=== PATIENT | male | born 1955 | race Caucasian/White ===

== ENCOUNTER 2022-12-25 11:30 | Outpatient (OUT) | payer OTHER, SELFPAY ==
[2022-12-28 04:12] LABS: PSA, Free 0.15 ng/mL; Prostate Specific Ag 1.4 ng/mL (0.0-4.0)
== END 2022-12-25 11:31 | disposition home or self-care (01) ==
LOC: LAB 11:33
PROVIDERS: PCP Nurse Practitioner; Visit Provider Urology
DX: N40.1 Benign prostatic hyperplasia with lower urinary tract symptoms (principal); N52.9 Male erectile dysfunction, unspecified; N26.1 Atrophy of kidney (terminal); N40.2 Nodular prostate without lower urinary tract symptoms
CPT/HCPCS: 36415; 84153; 84154

== ENCOUNTER 2023-12-27 10:01 | Outpatient (OUT) | payer OTHER, SELFPAY ==
--- OUTSIDE RECORDS SUMMARY | 2023-12-27 10:11 | XMS_ITS | CCD ---
Author Organization [facility] Care Team Providers Care 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 Name Role Phone SHANNAN REINA Primary Care Physician SHANNAN REINA Primary Care Unavailable ANGEL, DR KURTZ Attending Unavailable ANGEL, DR KURTZ Consulting Unavailable ANGEL, DR KURTZ Admitting Unavailable NUNO, SHANNAN Admitting Unavailable SHANNAN REINA Attending Unavailable NUNO, SHANNAN Primary Care Unavailable Luther, DR Borrego Consulting Unavailable NUNO, SHANNAN Consulting Unavailable REINA, SHANNAN Primary Care Unavailable SHANNAN REINA Admitting Unavailable SHANNAN REINA Attending Unavailable SHANNAN REINA Consulting Unavailable DEDE HUNG Consulting Unavailable DEDE HUNG Admitting Unavailable REINA, SHANNAN Primary Care Unavailable DEDE HUNG Attending Unavailable NUNO, SHANNAN Primary Care Unavailable Tao CONTRERAS Attending Unavailable SHANNAN REINA Primary Care Unavailable Tao CONTRERAS Attending Unavailable Nuno HEART NURSE-Shannan HERNANDEZ Primary Care Provid er SHANNAN REINA Attending Unavailable SHANNAN REINA Referring Unavailable SHANNAN REINA Primary Care Unavailable SHANNAN REINA Attending Unavailable SHANNAN REINA Referring Unavailable SHANNAN REINA Primary Care Unavailable SHANNAN REINA Attending Unavailable SHANNAN REINA Referring Unavailable SHANNAN REINA Primary Care Unavailable Medications Current Medications Medication Drug Class(es) Dates Sig (Normalized) Sig (Original) aspirin 81 mg delayed release oral tablet (5 sources) Platelet Aggregation Inhibitor, Nonsteroidal Anti-inflammatory Drug Start: 05-31-2023 take 1 tablet by mouth once daily aspirin 81 mg Indications: Pneumonia due to COVID-19 virus TAKE 1 TABLET(81 MG) BY MOUTH DAILY 90 tablet 2 05/31/2023 Active Start: 05-17-2022 End: 05-31-2023 take 1 tablet by mouth once daily aspirin 81 mg Indications: Pneumonia due to COVID-19 virus TAKE 1 TABLET(81 MG) BY MOUTH DAILY 90 tablet 2 05/17/2022 05/31/2023 Discontinued Start: 11-07-2020 take 1 mg by mouth e very four hours aspirin 81 mg oral capsule mg cap(s), Oral, q4hr, Refills(s) 0 Start Date: 11/07/20 Status: Ordered atorvastatin 40 mg oral tablet (5 sources) HMG-CoA Reductase Inhibitor Start: 12-16-2022 End: 03-22-2023 atorvastatin (LIPITOR) 40 mg tablet Indications: Non-insulin dependent type 2 diabetes mellitus (CMS-HCC) Take 1 tablet (40 mg total) by mouth in the morning. 90 tablet 2 03/22/2023 Active Start: 11-07-2020 atorvastatin 2 0 mg Tab Refills(s) 0 Start Date: 11/07/20 Status: Ordered benzonatate 200 mg oral capsule (1 source) Non-narcotic Antitussive Start: 11-07-2020 benzonatate 200 mg oral capsule Refills(s) 0 Start Date: 11/07/20 Status: Ordered blood-glucose meter misc (3 sources) Start: 12-25-2020 blood-glucose meter misc Indications: New onset type 2 diabetes mellitus (CMS-HCC) Monitor blood sugar twice daily 1 each 0 12/25/2020 Active cholecalciferol 0.125 mg oral capsule (3 sources) Vitamin D Start: 01-26-2021 take 1 capsule by mouth once daily cholecalciferol, vitamin D3, (VITAMIN D3) 5,000 units capsule Indications: COVID-19 , Vitamin D deficiency take 1 capsule by mouth once daily 90 capsule 0 01/26/2021 Active finasteride 5 mg oral tablet (4 sources) 5-alpha Reductase Inhibitor Start: 02-19-2021 take 1 tablet by mouth in the morning finasteride (PROSCAR) 5 mg tablet Take 1 tablet (5 mg total) by mouth in the morning. 0 05/26/2021 Active FLUoxetine 20 mg oral tablet (5 sources) Serotonin Reuptake Inhibitor Start: 12-15-2022 End: 03-22-2023 take 1 tablet by mouth in the morning FLUoxetine (PROzac) 20 MG tablet Indications: Anxiety with depression Take 1 tablet (20 mg total) by mouth in the morning. 90 tablet 1 03/22/2023 Active Start: 11-07-2020 FLUoxetine (Eq v-Prozac) 20 mg oral tablet 20 mg = 1 tab(s), Refills(s) 0 Start Date: 11/07/20 Status: Ordered FOLIC ACID/MULTIVIT-MIN/LUTE IN (CENTRUM SILVER ORAL) (3 sources) FOLIC ACID/MULTI VIT-MIN/LUTEIN (CENTRUM SILVER ORAL) Take by mouth. 0 Active isopropyl alcohol 0.7 ml/ml medicated pad (3 sources) Start: 2020 alcohol swabs (ALCOHOL PREP PADS) pads, medicated Indications: New onset type 2 diabetes mellitus (CMS-HCC) Apply 1 Pad topically 2 (two) times a day. 200 each 2 12/25/2020 Active levothyroxine sodium 0.075 m g oral tablet (5 sources) l-Thyr oxine Start: 2022 End: 2023 take 1 tablet by mouth once daily levothyroxine (SYNTHROID, LEVOTHROID) 75 MCG tablet Indications: Acquired hypothyroidism TAKE 1 TABLET(75 MCG) BY MOUTH DAILY 90 tablet 1 03/22/2023 Active Start: 06-13-2019 levothyroxine Daily, Refills(s) 0 Start Date: 06/13/19 Status: Ordered lisinopril 2.5 mg oral tablet (5 sources) Angiotensin Converting Enzyme Inhibitor Start: 12-15-2022 End: 03-22-2023 lisinopriL (PRINIVIL,ZESTRIL) 2.5 mg tablet Indications: Non-insulin dependent type 2 diabetes mellitus (CMS-HCC) TAKE 1 TABLET BY MOUTH EVERY DAY 90 tablet 1 03/22/2023 Active 24 hr metFORMIN hydrochloride 500 mg extended release oral tablet (4 sources) Biguanide Start: 03-22-2023 take 1 tablet by mouth every twenty-four hours in the morning, then take 1 tablet by mouth at mealtime metFORMIN XR (GLUCOPHAGE XR) 500 mg 24 hr tablet Indications: Non-insulin dependent type 2 diabetes mellitus (CMS-HCC) Take 1 tablet (500 mg total) by mouth in the morning and 1 tablet (500 mg total) in the evening. Take with meals. 180 tablet 1 03/22/2023 Active Start: 12-15-2022 End: 03-22-2023 metFORMIN XR (GLUCOPHAGE XR) 500 mg 24 hr tablet Indications: Non-insulin dependent type 2 diabetes mellitus (CMS-HCC) TAKE 1 TABLET(500 MG) BY MOUTH DAILY WITH BREAKFAST 90 tablet 1 12/15/2022 03/22/2023 Discontinued (Therapy completed) methylPREDNISolone (2 sources) Corticosteroid Start: 03-22-2023 methylPREDNISolone (MEDROL, GABRIEL,) 4 mg tablet Indications: Acute pain of left shoulder follow package directions 21 tablet 0 03/22/2023 Active Multi Vitamin+ (1 source) Start: 06-13-2019 Multi Vitamin+ Refill(s) 0 Start Date: 06/13/19 Status: Ordered nystatin [id number] unt/ml / triamcinolone acetonide 1 mg/ml topical cream (2 sources) Polyene Antifungal, Corticosteroid Start: 03-22-2023 nystatin-triamcinolone (MYCOLOG II) cream Indications: Tinea versicolor Apply 1 Application topically in the morning and 1 Application at noon and 1 Application in the evening and 1 Application before bedtime. 30 g 3 03/22/2023 Active predniSONE (1 source) Start: 11-07-2020 predniSONE 10 mg Tab Refills(s) 0 Start Date: 11/07/20 Status: Ordered sildenafil 20 mg oral tablet (4 sources) Phosphodiesterase 5 Inhibitor Start: 11-15-2022 sildenafiL, pulm.hypertension, (REVATIO) 20 mg tablet TAKE 1 TABLET BY MOUTH 1 HOUR PRIOR TO INTERCOURSE NEEDED. DO NOT EXCEED 5 TABLETS AT ONCE AND DO NOT EXCEED 5 TABLETS IN A 24 HOUR PERIOD. 0 11/15/2022 Active Start: 05-27-2021 take 5 tablets by mo [facility] every hour sildenafil 20 mg oral tablet 20 mg = 1 tab(s), Oral, As Directed, Take one hour prior to intercourse, do not exceed 5 tabs at once, # 30 tab(s), Refills(s) 3, Pharmacy: [id number], 185, cm, 11/07/20 9:55:00 EDT, Height/Length Dosing, 111, kg, 11/07/20 9:55:00 EDT, W... Start Date: 05/27/21 Status: Ordered tadalafil 20 mg oral tablet (2 sources) Phosphodiesterase 5 Inhibitor Start: 12-27-2022 tadalafiL (CIALIS) 20 mg tablet Take 1 tablet (20 mg total) by mouth. 0 12/27/2022 Active Problems Active Problems Problem Classification Problem Date Documented Da te Episodic/Chronic Anxiety disorders (2 sources) Mixed anxiety and depressive disorder; Translations: [Other specified anxiety disorders] Onset: 10-11-2023 03-22-2023 Chronic Chronic kidney disease (1 source) Chronic kidney disease, unspecified; Translations: [CHRONIC KIDNEY DISEASE UNSPECIFIED] Onset: 11-10-2021 Chronic Diabetes mellitus with complications (1 source) Type 2 diabetes mellitus with hyperglycemia; Translations: [Type 2 diabetes mellitus with hyperglycemia] Onset: 07-07-2023 Chronic Diabetes mellitus without complication (4 sources) Type 2 diabetes mellitus; Translations: [Type 2 diabetes mellitus without complications] Onset: 07-07-2023 03-14-2023 Chronic Disorders of lipid metabolism (3 sources) Mixed hyperlipidemia; Translations: [Mixed hyperlipidemia] 04-09-2021 Chronic E Codes: Struck by; against (1 source) Striking against or struck by other objects, initial encounter; Translations: [STRIKING AGNST/STRUCK OTH OBJ INIT] Onset: 11-10-2021 Episodic Essential hypertension (4 sources) Hypertensive disorder; Translations: [Essential (primary) hypertension] Onset: 03-22-2023 06-13-2019 Chronic Hyperplasia of prostate (7 sources) Benign prostatic hypertrophy with outflow obstruction; Translations: [Benign prostatic hyperplasia with lower urinary tract symptoms] Onset: 11-09-2021 Chronic Immunizations and screening for infectious disease (1 source) Encounter for immunization; Translations: [ENCOUNTER FOR IMMUNIZATION] Onset: 11-10-2021 Episodic Nephritis; nephrosis; renal sclerosis (5 sources) Atrophy of kidney; Translations: [Atrophy of kidney (terminal)] Onset: 08-11-2021 Chronic Open wounds of head; neck; and trunk (4 sources) Laceration with foreign body of left ear, initial encounter; Translations: [LACERATION W/FB LT EAR INITIAL ENC] Onset: 11-06-2021 Episodic Other aftercare (1 source) Other long term care phlebotomist (current) drug therapy; Translations: [OTH [facility] CURRENT DRUG THERAPY] Onset: 11-10-2021 Episodic Other liver diseases (3 sources) Steatosis of liver; Translations: [Fatty (change of) liver, not elsewhere classified] Onset: 02-12-2019 02-12-2019 Chronic Other male genital disorders (1 source) Male erectile dysfunction, unspecified; Translations: [Erectile dysfunction] Onset: 11-09-2021 Chronic Other male genital disorders (1 source) Impotence 06-13-2019 Chronic Other screening for suspected conditions (not mental disorders or infectious disease) (12 sources) Raised prostate specific antigen; Translations: [Encounter for screening for malignant neoplasm of prostate] Onset: 08-11-2021 06-13-2019 Episodic Pneumonia (except that caused by tuberculosis or sexually transmitted disease) (1 source) Pneumonia (except that caused by tuberculosis or sexually transmitted disease); Translations: [PNEUMONIA D/T CORONAVIRUS DIS 2018] Onset: 02-24-2021 Screening and history of mental health and substance abuse codes (1 source) Ex-smoker 06-25-2019 Episodic Spondylosis; intervertebral disc disorders; other back problems (6 sources) Sciatica; Translations: [Sciatica, unspecified side] Onset: 08-11-2021 06-13-2019 Episodic Thyroid disorders (7 sources) Hypothyroidism, unspecified; Translations: [Hypothyroidism] Onset: 11-14-2018 11-14-2018 Chronic Thyroid disorders (3 sources) Disorder of thyroid gland; Translations: [Disorder of thyroid, unspecified] Onset: 03-22-2023 06-13-2019 Episodic Viral infection (1 source) COVID-19; Translations: [Pneumonia due to other virus not elsewhere classified] 05-31-2023 Episodic Viral infection (4 sources) COVID-19; Translations: [COVID-19] Onset: 02-17-2021 Past or Other Problems Problem Classification Problem Date Documented Da te Episodic/Chronic Mood disorders (3 sources) Mood disorders Onset: 12-15-2022 Resolved: 03-22-2023 12-15-2022 Mycoses (2 sources) Pityriasis versicolor; Translations: [Pityriasis versicolor] Onset: 03-22-2023 03-22-2023 Episodic Other diseases of kidney and ureters (4 sources) Hydronephrosis; Translations: [Unspecified hydronephrosis] Onset: 08-11-2021 06-13-2019 Episodic Other diseases of kidney and ureters (3 sources) Kidney disease; Translations: [Disorder of kidney and ureter, unspecified] Onset: 11-14-2018 11-14-2018 Episodic Other male genital disorders (4 sources) History of prostatitis; Translations: [Personal history of other diseases of male genital organs] Onset: 08-11-2021 06-13-2019 Episodic Other non-traumatic joint disorders (2 sources) Pain in left shoulder; Translations: [Pain in joint, shoulder region] Onset: 03-22-2023 03-22-2023 Episodic Other skin disorders (1 source) Disorder of pigmentation, unspecified; Translations: [Disorder of pigmentation, unspecified] Onset: 07-07-2023 Episodic Unclassified (3 sources) Onset: 12-15-2022 Resolved: 03-22-2023 12-15-2022 Results Test Name Value Interpretation Reference Range Facility POCT Hemoglobin A1con 2023 HbA1c (Bld) [Mass fraction] 7.3 g/dL Abnormal 4 - 7 g[facility] Interpretation and review of laboratory results Abnormal [facility] [employer] [facility] Lab Reportson 12-29-2022 Lab Reports [id number] IFF [facility] Ambulatory Visit Summaryon 1 Ambulatory Visit Summary CECIL VIGIL Bishnu :1955 Visit Date:12/27/2022 Ambulatory Visit Instructions Your Diagnosis BPH with urinary obstruction Erectile dysfunction Renal atrophy Prostate nodule Tests Performed Urnls Dip Stick Auto w/o Microscopy POC [id number] Your Care Team Attending Physician - Tao CONTRERAS MD Primary Care Physician - SHANNAN REINA CNP This Is Your Medications List sildenafil (sildenafil 20 mg oral tablet) Contact prescribing physician if questions or concerns aspirin (aspirin 81 mg oral capsule) atorvastatin (atorvastatin 20 mg Tab) benzonatate (benzonatate 200 mg oral capsule) finasteride (finasteride 5 mg Tab) fluoxetine (FLUoxetine (Eqv-Prozac) 20 mg oral tablet) levothyroxine lisinopril (lisinopril 2.5 mg Tab) metformin (MetFORMIN (Eqv-Glucophage XR) 500 mg oral tablet, extended release) multivitamin (Multi Vitamin+) predniSONE (predniSONE 10 mg Tab) Procedures Performed Biopsy of prostate (09/05/2022), H/O: vasectomy. Discharge Vitals Heart Rate (Peripheral) 72 Respiratory Rate 16 Blood Pressure 114/83 Height 185 cm Height 73 in Weight 111 kg Weight 244.2 lb BMI 32.43 What to do next Scheduled Follow-Up Appointments Tuesday 8:45 AM EST With: ANGEL GLEZ, Tao Reed Where: [facility] Patient Educationon 12-28-19 Patient Education Urology Benign Prostatic Hyperplasia Benign prostatic hyperplasia (BPH) is an enlarged prostate gland that is caused by the normal aging process. The prostate may get bigger as a man gets older. The condition is not caused by cancer. The prostate is a walnut-sized gland that is involved in the production of semen. It is located in front of the rectum and below the bladder. The bladder stores urine. The urethra carries stored urine out of the body. An enlarged prostate can press on the urethra. This can make it harder to pass urine. The buildup of urine in the bladder can cause infection. Back pressure and infection may progress to bladder damage and kidney (renal) failure. What are the causes? This condition is part of the normal aging process. However, not all men develop problems from this condition. If the prostate enlarges away from the urethra, urine flow will not be blocked. If it enlarges toward the urethra and compresses it, there will be problems passing urine. What increases the risk? This condition is more likely to develop in men older than 50 years. What are the signs or symptoms? Symptoms of this condition include: ? Getting up often during the night to urinate. ? Needing to urinate frequently during the day. ? Difficulty starting urine flow. ? Decrease in size and strength of your urine stream. ? Leaking (dribbling) after urinating. ? Inability to pass urine. This needs immediate treatment. ? Inability to completely empty your bladder. ? Pain when you pass urine. This is more common if there is also an infection. ? Urinary tract infection (UTI). How is this diagnosed? This condition is diagnosed based on your medical history, a physical exam, and your symptoms. Tests will also be done, such as: ? A post-void bladder scan. This measures any amount of urine that may remain in your bladder after you finish urinating. ? A digital rectal exam. In a rectal exam, your health care provider checks your prostate by putting a lubricated, gloved finger into your rectum to feel the back of your prostate gland. This exam detects the size of your gland and any abnormal lumps or growths. ? An exam of your urine (urinalysis). ? A prostate specific antigen (PSA) screening. This is a blood test used to screen for prostate cancer. ? An ultrasound. This test uses sound waves to electronically produce a picture of your prostate gland. Your health care provider may refer you to a specialist in kidney and prostate diseases (urologist). How is this treated? Once symptoms begin, your health care provider will monitor your condition (active surveillance or watchful waiting). Treatment for this condition will depend on the severity of your condition. Treatment may include: ? Observation and yearly exams. This may be the only treatment needed if your condition and symptoms are mild. ? Medicines to relieve your symptoms, including: ? Medicines to shrink the prostate. ? Medicines to relax the muscle of the prostate. ? Surgery in severe cases. Surgery may include: ? Prostatectomy. In this procedure, the prostate tissue is removed completely through an open incision or with a laparoscope or robotics. ? Transurethral resection of the prostate (TURP). In this procedure, a tool is inserted through the opening at the tip of the penis (urethra). It is used to cut away tissue of the inner core of the prostate. The pieces are removed through the same opening of the penis. This removes the blockage. ? Transurethral incision (TUIP). In this procedure, small cuts are made in the prostate. This lessens the prostate's pressure on the urethra. ? Transurethral microwave thermotherapy (TUMT). This procedure uses microwaves to create heat. The heat destroys and removes a small amount of prostate tissue. ? Transurethral needle ablation (TUNA). This procedure uses radio frequencies to destroy and remove a small amount of prostate tissue. ? Interstitial laser coagulation (ILC). This procedure uses a laser to destroy and remove a small amount of prostate tissue. ? Transurethral electrovaporization (TUVP). This procedure uses electrodes to destroy and remove a small amount of prostate tissue. ? Prostatic urethral lift. This procedure inserts an implant to push the lobes of the prostate away from the urethra. Follow these instructions at home: ? Take glko-sod-ksspcxu and prescription medicines only as told by your health care provider. ? Monitor your symptoms for any changes. Contact your health care provider with any changes. ? Avoid drinking large amounts of liquid before going to bed or out in public. ? Avoid or reduce how much caffeine or alcohol you drink. ? Give yourself time when you urinate. ? Keep all follow-up visits. This is important. Contact a health care provider if: ? You have unexplained back pain. ? Your symptoms do not get better with treatment. ? You develop side effects from the medicine (more content not included)... [facility] Urology Office/Clinic Noteon 12-27-2022 Urology Office/Clinic Note Chief Complaint 1yr PSA HPI Staff 67 yo male here for 1 yr f/u with PSA. Previous Dx: BPH with obstruction, ED, renal atrophy, prostate nodule. S/p TRUS 09/05/12. Taking Finasteride 5mg qd and Sildenafil 20mg prn. Previous PSA 11/04/21 was 1.1 (2.2), and 12/01/21 was 1.42 (2.84) (ordered bp PCP). PSA F/T drawn 12/25/22 @ [facility]. Results have not been finalized yet. Pt denies any urinary concerns at this time. States Sildenafil therapy is working fine. History of Present Illness Tests reviewed: reviewed UA, PSA I have reviewed the previous health record information and history for this patient from Dr. Contreras. I have reviewed and verified the staff HPI to be accurate for this encounter. Review of Systems PHQ Score Initial Depression Screen Score: 0 ROS - Provider Constitutional: denies weight loss, denies hot flashes. Eyes: denies eye problems. Gastrointestinal: denies nausea, denies vomiting. Cardiovascular: denies chest pain or angina. Integumentary: no dryness Musculoskeletal: denies musculoskeletal symptoms. ENMT: denies otolaryngeal symptoms. Respiratory: no shortness of breath. Heme/Lymph: denies easy bleeding tendency, denies easy bruising tendency. Psychiatric: no confusion, no anxiety. Genitourinary: See HPI. Physical Exam Vitals & Measurements HR: 72(Peripheral) RR: 16 BP: 114/83 HT: 73 in HT: 185 cm WT: 111 kg WT: 244.2 lb BMI: 32.43 General Appearance: alert, no distress, well nourished, well developed male. Genitourinary: normal scrotum, normal testes, normal urethra, normal epididymis, normal vas deferens/spermatic cord. Flank Pain: none. Bladder: nonpalpable. Prostate: normal prostate, estimated weight 35 gms, no hard nodule observed. Assessment/Plan 1. BPH with urinary obstruction (N40.1: Benign prostatic hyperplasia with lower urinary tract symptoms) Taking Finasteride 5mg qd. Denies SEs. Good stream. Feels he empties completely. Denies hematuria. DEBO today: benign PSA 10/02/19 - 1.53 (3.06) 11/04/21 - 1.1 (2.2) and 20.9% 12/01/21 - 1.42 (2.84) 12/25/22 - PSA results at [facility] not finalized Follow up with PSA in 1 year or sooner if needed. All questions/concerns were discussed. Pt to call the office if he encounters any issues prior. Pt acknowledges understanding. 2. Erectile dysfunction (N52.9: Male erectile dysfunction, unspecified) Taking Sildenafil 20mg prn. Takes 4 pills at a time. Knows he can take up to 5 pills at once for a max dose of 100mg. Discussed changing Sildenafil dosage to 100mg vs trying Tadalafil. Pt would like to try Tadalafil. -D/c Sildenafil -Begin Tadalafil. Discussed the medication side effects, and the patient will monitor closely for these, as well as for symptom improvement. If severe side effects occur, the medication should be stopped and the office notified. 3. Renal atrophy (N26.1: Atrophy of kidney (terminal)) On Left. No recent imaging. Follow-up With When Contact Information ANGEL GLEZ, Tao Reed, URL [facility] [address] [place] [address]- [phone] Additional Instructions: 1 yr Patient Education Benign Prostatic Hyperplasia IKell, personally scribed for Dr. Contreras on 12/27/2022 12:46:07. . Documentation recorded by the scribeKell, accurately reflects the services(s) I performed and decisions made by me. Authenticated by Dr. Contreras on 12/27/2022 12:47:25. Problem List/Past Medical History Ongoing BPH with urinary obstruction Elevated PSA Erectile dysfunction Former smoker History of prostatitis Hydronephrosis Hypertension Prostate nodule Renal atrophy Sciatic nerve pain Thyroid disease Historical No qualifying data Procedure/Surgical History Biopsy of prostate (09/05/2022), H/O: vasectomy. Medications aspirin 81 mg oral capsule, Oral, q4hr atorvastatin 20 mg Tab benzonatate 200 mg oral capsule finasteride 5 mg Tab, 5 mg= 1 tab(s), Oral, Daily, 3 refills FLUoxetine (Eqv-Prozac) 20 mg oral tablet, 20 mg= 1 tab(s) levothyroxine, Daily lisinopril 2.5 mg Tab MetFORMIN (Eqv-Glucophage XR) 500 mg oral tablet, extended release Multi Vitamin+ predniSONE 10 mg Tab sildenafil 20 mg oral tablet, 20 mg= 1 tab(s), Oral, As Directed, 3 refills Allergies No Known Allergies Social History Tobacco Former smoker, quit more than 30 days ago Tobacco Use:. Never Smokeless Tobacco Use:. Household tobacco concerns: No. Yes, 12/27/2022 Former smoker, quit more than 30 days ago Tobacco Use:., 11/09/2021 Family History Diabetes mellitus type 1: Mother. Primary malignant neoplasm of colon: Father. Immunizations Vaccine Date Status influenza virus vaccine, inactivated 12/15/2022 Recorded influenza virus vaccine, inactivated 12/09/2021 Recorded pneumococcal 13-valent vaccine 08/10/2021 Recorded SARS-CoV-2 (COVID-19) mRNA BNT-162b2 vax 01/16/2021 Recorded SARS-CoV-2 (COVID-19) mRNA BNT-162 (more content not included)... [facility] Comment on above: Result Comment: Elec tronically Signed By: Tao CONTRERAS MD\.br\Date and Time Signed: 12/27/22 12:47 EDT\.br\Electronically Co-Signed By: Kell [email or web address].[email or web address]\Date and Time Co-Signed: 12/27/22 12:46 EDT CBC AUTO DIFFon 12-01-2021 BASO # 0.0 103/ul Normal 0.0-0.1 [facility] Comment on above: Performed By: #### C BC #### [facility] [address] [place] [address] Dr. Eliane Lunsford Basophils/100 WBC (Bld) 0.7 % Normal 0.2-2.0 [facility] Comment on above: Performed By: #### C BC #### [facility] [address] [place] [address] Dr. Eliane Lunsford EO # 0.2 103/ul Normal 0.0-0.7 [facility] Comment on above: Performed By: #### C BC #### [facility] [address] [place] [address] Dr. Eliane Lunsford Eosinophils/100 WBC (Bld) 3.5 % Normal 0.9-7.0 [facility] Comment on above: Performed By: #### C BC #### [facility] [address] [place] [address] Dr. Eliane Lunsford Erythrocyte distribution width (RBC) [Ratio] 12.3 % Normal 11.0-15.0 [facility] Comment on above: Performed By: #### C BC #### [facility] [address] [place] [address] Dr. Eliane Lusnford Hematocrit (Bld) [Volume fraction] 46.2 % Normal 42.0-54.0 [facility] Comment on above: Performed By: #### C BC #### [facility] [address] [place] [address] Dr. Eliane Lunsford Hemoglobin (Bld) [Mass/Vol] 15.7 g/dL Normal 14.0-18.0 [facility] Comment on above: Performed By: #### C BC #### [facility] [address] [place] [address] Dr. Eliane Lunsford IG # 0.03 10e3/ul Normal 0.00-0.03 [facility] Comment on above: Performed By: #### C BC #### [facility] [address] [place] [address] Dr. Eliane Lunsford IG % 0.5 % Normal 0.0-0.5 [facility] Comment on above: Performed By: #### C BC #### [facility] [address] [place] [address] Dr. Eliane Lunsford LYMPH # 1.7 103/ul Normal 1.2-3.8 [facility] Comment on above: Performed By: #### C BC #### [facility] [address] [place] [address] Dr. Eliane Lunsford Lymphocytes/100 WBC (Bld) 27.5 % Normal 20.5-60.0 [facility] Comment on above: Performed By: #### C BC #### [facility] [address] [place] [address] Dr. Eliane Lunsford MANUAL DIFF REQ NO Normal [facility] Comment on above: Performed By: #### C BC #### [facility] [address] [place] [address] Dr. Eliane Lunsford MCH (RBC) [Entitic mass] 31.9 pg Normal 25.9-34.0 [facility] Comment on above: Performed By: #### C BC #### [facility] [address] [place] [address] Dr. Eliane Lunsford MCHC (RBC) [Mass/Vol] 34.0 g/dL Normal 29.9-35.2 [facility] Comment on above: Performed By: #### C BC #### [facility] [address] [place] [address] Dr. Eliane Lunsford MCV (RBC) [Entitic vol] 93.9 fL Normal 80.0-94.0 [facility] Comment on above: Performed By: #### C BC #### [facility] [address] [place] [address] Dr. Eliane Lunsford MONO # 0.4 103/ul Normal 0.3-0.8 [facility] Comment on above: Performed By: #### C BC #### [facility] [address] [place] [address] Dr. Eliane Lunsford Monocytes/100 WBC (Bld) 7.2 % Normal 1.7-12.0 [facility] Comment on above: Performed By: #### C BC #### [facility] [address] [address] [address] Eliane Lunsford NEUT # 3.6 103/ul Normal 1.4-6.5 [facility] Comment on above: Performed By: #### C BC #### [facility] [address] [address] [address] Eliane Lunsford Neutrophils/100 WBC (Bld) 60.6 % Normal 43.0-75.0 [facility] Comment on above: Performed By: #### C BC #### [facility] [address] [place] [address] Dr. Eliane Lunsford Platelet mean volume (Bld) [Entitic vol] 10.1 fL Normal 9.5-13.5 [facility] Comment on above: Performed By: #### C BC #### [facility] [address] [place] [address] Dr. Eliane Lunsford PLT 188 103/ul Normal 150-450 [facility] Comment on above: Performed By: #### C BC #### [facility] [address] [place] [address] Dr. Eliane Lunsford RBC 4.92 106/ul Normal 4.70-6.10 [facility] Comment on above: Performed By: #### C BC #### [facility] [address] [place] [address] Dr. Eliane Lunsford WBC 6.0 103/ul Normal 4.0-11.0 [facility] Comment on above: Performed By: #### C BC #### [facility] [address] [place] [address] Dr. Eliane Lunsford GLYCOHEMOGLOBIN A1Con 2021 ADA RECOMMENDATION SEE BELOW Normal [facility] Comment on above: Result Comment: ADA RECOMMENDED LIMIT 4.0 - 6.0 ADA THERAPEUTIC TARGET < 7.0 ACTION SUGGESTED > 7.0 Performed By: #### A 1C #### [facility] [address] [place] [address] Dr. Eliane Lunsford Glucose [Mass/Vol] 117 mg/dL Normal [facility] Comment on above: Performed By: #### A 1C #### [facility] [address] [address] [address] Eliane Lunsford HbA1c (Bld) [Mass fraction] 5.7 % Normal 4.5-6.2 [facility] Comment on above: Performed By: #### A 1C #### [facility] [address] [place] [address] Dr. Eliane Lunsford LIPID PROFILEon 12-01-2021 CHOL-HDL RATIO NORM SEE BELOW Normal [facility] Comment on above: Result Comment: 3.3 - 4.4 LOW RISK 4.4 - 7.1 AVERAGE RISK 7.1 - 11.0 MODERATE RISK >11.0 HIGH RISK Performed By: #### T SH, LIPID, CMP #### [facility] [address] [place] [address] Dr. Eliane Lunsford Cholesterol [Mass/Vol] 167 mg/dL Normal <=200 [facility] Comment on above: Performed By: #### T SH, LIPID, CMP #### [facility] [address] [place] [address] Dr. Eliane Lunsford Cholesterol in HDL [Mass/Vol] 37 mg/dL Critically low 40-60 [facility] Comment on above: Performed By: #### T SH, LIPID, CMP #### [facility] [address] [place] [address] Dr. Eliane Lunsford Cholesterol in LDL [Mass/Vol] 100.2 mg/dL Normal [facility] Comment on above: Performed By: #### T SH, LIPID, CMP #### [facility] [address] [address] [address] Eliane Lunsford Cholesterol.total/Ch olesterol in HDL [Mass ratio] 4.5 {ratio} Normal [facility] Comment on above: Performed By: #### T SH, LIPID, CMP #### [facility] [address] [place] [address] Dr. Eliane Lunsford HDL NORMAL > or = 60 mg/dl - LO W CARDIOVASCULAR RISK <40 mg/dl - HIGH CARDIOVASCULAR RISK Normal [facility] Comment on above: Performed By: #### T SH, LIPID, CMP #### [facility] [address] [place] [address] Dr. Eliane Lunsford LDL CALC NORMAL SEE BELOW Normal [facility] Comment on above: Result Comment: <100 mg/dl OPTIMAL 100 - 129 mg/dl NEAR OR ABOVE OPTIMAL 130 - 159 mg/dl BORDERLINE HIGH 160 - 189 mg/dl HIGH >190 mg/dl VERY HIGH Performed By: #### T CARINE, LIPID, CMP #### [facility] [address] [address] [address] Eliane Lunsford Triglyceride [Mass/Vol] 149 mg/dL Normal <=150 [facility] Comment on above: Performed By: #### T CARINE, LIPID, CMP #### [facility] [address] [place] [address] Dr. Eliane Lunsford VLDL CALC 29.8 mg/dL Normal [facility] Comment on above: Performed By: #### T CARINE, LIPID, CMP #### [facility] [address] [place] [address] Dr. Eliane Lunsford PROF 14(COMP METB)on 022 Albumin [Mass/Vol] 3.9 g/dL Normal 3.4-5.0 [facility] Comment on above: Performed By: #### T CARINE, LIPID, CMP #### [facility] [address] [place] [address] Dr. Eliane Lunsford Albumin/Globulin [Mass ratio] 1.2 {ratio} Normal [facility] Comment on above: Performed By: #### T SH, LIPID, CMP #### [facility] [address] [place] [address] Dr. Eliane Lunsford ALP [Catalytic activity/Vol] 86 U/L Normal 46-116 [facility] Comment on above: Performed By: #### T SH, LIPID, CMP #### [facility] [address] [place] [address] Dr. Eliane Lunsford ALT [Catalytic activity/Vol] 54 U/L Normal 16-63 [facility] Comment on above: Performed By: #### T CARINE, LIPID, CMP #### [facility] [address] [place] [address] Dr. Eliane Lunsford Anion gap [Moles/Vol] 13.3 mmol/L Normal [facility] Comment on above: Performed By: #### T CARINE LIPID, CMP #### [facility] [address] [address] [address] Eliane Lunsford AST [Catalytic activity/Vol] 30 U/L Normal 15-37 [facility] Comment on above: Performed By: #### T CARINE LIPID, CMP #### [facility] [address] [address] [address] Eliane Lunsford Bilirubin [Mass/Vol] 1.1 mg/dL Critically high 0.2-1.0 [facility] Comment on above: Performed By: #### T CARINE LIPID, CMP #### [facility] [address] [place] [address] Dr. Eliane Lunsford Calcium [Mass/Vol] 8.8 mg/dL Normal 8.5-10.1 [facility] Comment on above: Performed By: #### T CARINE LIPID, CMP #### [facility] [address] [place] [address] Dr. Eliane Lunsford Chloride [Moles/Vol] 103 mmol/L Normal 98-107 [facility] Comment on above: Performed By: #### T CARIEN LIPID, CMP #### [facility] [address] [place] [address] Dr. Eliane Lunsford CO2 [Moles/Vol] 26.2 mmol/L Normal 21.0-32.0 [facility] Comment on above: Performed By: #### T CARINE, LIPID, CMP #### [facility] [address] [place] [address] Dr. Elaine Lunsford Creatinine [Mass/Vol] 1.33 mg/dL Critically high 0.70-1.30 [facility] Comment on above: Performed By: #### T CARINE, LIPID, CMP #### [facility] [address] [place] [address] Dr. Eliane Lunsford EGFR-AF [place] >60 Normal >=60 The [facility] Comment on above: Performed By: #### T CARINE, LIPID, CMP #### [facility] [address] [address] [address] Eliane Lunsford EGFR-NON AF [place] 54 mL/min/1.73m2 Critically low >=60 [facility] Comment on above: Performed By: #### T SH, LIPID, CMP #### [facility] [address] [address] [address] Eliane Lunsford Globulin (S) [Mass/Vol] 3.3 g/dL Normal [facility] Comment on above: Performed By: #### T SH, LIPID, CMP #### [facility] [address] [address] [address] Eliane Lunsford Glucose [Mass/Vol] 120 mg/dL Critically high 74-106 [facility] Comment on above: Performed By: #### T SH, LIPID, CMP #### [facility] [address] [address] [address] Eliane Lunsford Potassium [Moles/Vol] 4.5 mmol/L Normal 3.5-5.1 [facility] Comment on above: Performed By: #### T SH, LIPID, CMP #### [facility] [address] [address] [address] Eliane Lunsford Protein [Mass/Vol] 7.2 g/dL Normal 6.4-8.2 [facility] Comment on above: Performed By: #### T SH, LIPID, CMP #### [facility] [address] [address] [address] Eliane Lunsford Sodium [Moles/Vol] 138 mmol/L Normal 136-145 [facility] Comment on above: Performed By: #### T SH, LIPID, CMP #### [facility] [address] [address] [address] Eliane Lunsford Urea nitrogen [Mass/Vol] 18.0 mg/dL Normal 7.0-18.0 [facility] Comment on above: Performed By: #### T SH, LIPID, CMP #### [facility] [address] [address] [address] Eliane Lunsford Urea nitrogen/Creatinine [Mass ratio] 13.5 mg/mg Normal [facility] Comment on above: Performed By: #### T SH, LIPID, CMP #### [facility] [address] [place], [place] [address] Dr. Eliane Lunsford TSHon 12-01-2021 TSH 2.074 uIU/mL Normal 0.358-3.740 [facility] Comment on above: Performed By: #### T SH, LIPID, CMP #### [facility] [id number] Eliane Lunsford PSA, FREE AND TOTAL RATIOon 11-05-2021 % Free PSA 20.9 % Normal [facility] Comment on above: Result Comment: The table below lists the probability of prostate cancer for men with non-suspicious DEBO results and total PSA between 4 and 10 ng/mL, by patient age (Florencia et al, STEPHANIE 1998, 279:1542). % Free PSA 50-64 yr 65-75 yr 0.00-10.00% 56% 55% 10.01-15.00% 24% 35% 15.01-20.00% 17% 23% 20.01-25.00% 10% 20% >25.00% 5% 9% Please note: Florencia et al did not make specific recommendations regarding the use of percent free PSA for any other population of men. Performed By: #### P SAFREE #### [facility] [id number] Eliane Lunsford Prostate specific Ag [Mass/Vol] 1.1 ng/mL Normal 0.0-4.0 [facility] Comment on above: Result Comment: Billy poole ECLIA methodology. . According to the [place] [employer], Serum PSA should decrease and remain at undetectable levels after radical prostatectomy. The AUA defines biochemical recurrence as an initial PSA value 0.2 ng/mL or greater followed by a subsequent confirmatory PSA value 0.2 ng/mL or greater. Values obtained with different assay methods or kits cannot be used interchangeably. Results cannot be interpreted as absolute evidence of the presence or absence of malignant disease. Performed By: #### P SAFREE #### [facility] [address] [place], [place] [address] Dr. Eliane Lunsford PSA, Free 0.23 ng/mL Normal N/A [facility] Comment on above: Result Comment: Billy MARTINS methodology. Performed By: #### P SAFREE #### [facility] [address] [address] [address] Eliane Lunsford Vital Signs Date Time Vital Sign Value Performing Clinician Facility 03-22-2023 09:05-0500 Body height 185.4 cm Shannan Reina APRN-SENIOR SECURITY ARCHITECT Work Phone: [facility] 03-22-2023 09:05-0500 Body mass index (BMI) [Ratio] 34.43 kg/m2 Shannan Reina HEART NURSE-SENIOR SECURITY ARCHITECT Work Phone: [facility] 03-22-2023 09:05-0500 Body temperature 97.59 [degF] Shannan Reina HEART NURSE-SENIOR SECURITY ARCHITECT Work Phone: [facility] 03-22-2023 09:05-0500 Body weight 118.39 kg Shannan Reina HEART NURSE-SENIOR SECURITY ARCHITECT Work Phone: [facility] 03-22-2023 09:05-0500 Diastolic blood pressure 72 mm[Hg] Shannan Reina HEART NURSE-SENIOR SECURITY ARCHITECT Work Phone: [facility] 03-22-2023 09:05-0500 Heart rate 69 /min Shannan Reina HEART NURSE-SENIOR SECURITY ARCHITECT Work Phone: [facility] 03-22-2023 09:05-0500 SaO2% (BldA) [Mass fraction] 98 % Shannan Reina HEART NURSE-SENIOR SECURITY ARCHITECT Work Phone: [facility] 03-22-2023 09:05-0500 Systolic blood pressure 124 mm[Hg] Shannan Reina HEART NURSE-SENIOR SECURITY ARCHITECT Work Phone: [facility] 11-09-2021 09:33-0400 Blood Pressure Location Tao CONTRERAS [facility] 11-09-2021 09:33-0400 Diastolic blood pressure 89 mm[Hg] Tao CONTRERAS [facility] 11-09-2021 09:33-0400 Heart rate 73 /min Tao CONTRERAS [facility] 11-09-2021 09:33-0400 Respiratory rate 16 /min Tao CONTRERAS [facility] 11-09-2021 09:33-0400 Systolic blood pressure 135 mm[Hg] Tao CONTRERAS [facility] Encounters Encounter Date Encounter Type Care Provider Facility Start: 01-02-2024 ambulatory SHANNAN REINA Facili ty:[facility] Start: 10-11-2023 End: 10-11-2023 ambulatory [facility] Start: 07-07-2023 End: 07-07-2023 ambulatory [facility] Start: 05-31-2023 Refill Shannan J Cast illo HEART NURSE-SENIOR SECURITY ARCHITECT [facility] Comment on above: Pneumonia due to COV ID-19 virus Start: 03-22-2023 End: 03-22-2023 Office outpatient visit 25 minutes Shannan Reina HEART NURSE-SENIOR SECURITY ARCHITECT Work Phone: [facility] Comment on above: Non-insulin dependen t type 2 diabetes mellitus ([facility]) (Primary Dx); Acquired hypothyroidism; Anxiety with depression; Tinea versicolor; Acute pain of left shoulder; Elevated LFTs Start: 03-22-2023 End: 03-22-2023 ambulatory [facility] Start: 03-14-2023 Refill Shannan J Cast illo HEART NURSE-SENIOR SECURITY ARCHITECT Work Phone: [facility] Comment on above: Non-insulin dependen t type 2 diabetes mellitus ([facility]) Start: 12-27-2022 End: 12-28-2022 ambulatory SHANNANLien REINA Facility:[facility] Start: 12-15-2022 Physical examination Shannan salas HEART NURSE-SENIOR SECURITY ARCHITECT Work Phone: [facility] Start: 12-03-2021 Encounter for genera l adult medical examination without abnormal findings SHANNANLien REINA [facility] Start: 12-01-2021 End: 12-02-2021 ambulatory SHANNAN REINA Facility:[facility] Start: 12-01-2021 End: 12-02-2021 Encounter for general adult medical examination without abnormal findings SHANNAN REINA Facility:[facility] Start: 11-09-2021 End: 11-09-2021 Patient encounter procedure Tao CONTRERAS [facility] Start: 11-06-2021 End: 11-06-2021 ambulatory DEDE HUNG Facility:[facility] Start: 11-04-2021 End: 11-05-2021 ambulatory SHANNAN REINA Facility:[facility] Start: 02-17-2021 End: 02-18-2021 ambulatory SHANNAN REINA Facility:[facility] Procedures Date Procedure Procedure Detail Performing Clinician Start: 03-22-2023 Hemoglobin glycosylated a1c Shannan Reina HEART NURSE-SENIOR SECURITY ARCHITECT Work Phone: Start: 03-22-2023 Adult depression scr eening assessment Shannan Reina HEART NURSE-SENIOR SECURITY ARCHITECT Work Phone: Start: 12-15-2022 Adult depression scr eening assessment Shannan Reina HEART NURSE-SENIOR SECURITY ARCHITECT Work Phone: Start: 12-01-2021 PSA screening SHANNAN SALAS Comment on above: Performed By: #### P [facility] #### [facility] [address] [place] [address] Dr. Eliane Lunsford Start: 08-14-2021 Diabetic retinal eye exam Shannan Reina HEART NURSE-SENIOR SECURITY ARCHITECT Work Phone: Start: 12-25-2020 Microalbumin [Mass/v olume] in Urine by Test strip Shannan Reina HEART NURSE-SENIOR SECURITY ARCHITECT Work Phone: Start: 01-29-2019 Liliana Pena franki HEART NURSE-SENIOR SECURITY ARCHITECT Work Phone: Start: 09-05-2012 Ultrasonography by transrectal approach Tao CONTRERAS H/O: vasectomy Tao Carrillo Plan of Treatment Date Care Activity Detail Author Start: 11-07-2031 DTaP,Tdap and Td Vaccines (2 - Tdap) DTaP,Tdap and Td Vaccines (2 - Tdap) [facility] Start: 03-22-2024 Adult BMI Follow Up Plan Adult BMI Follow Up Plan [facility] Start: 03-22-2024 Adult BMI Screening Adult BMI Screening [facility] Start: 03-22-2024 Depression Screening Depression Screening [facility] Start: 03-22-2024 Fall Risk Screening Fall Risk Screening [facility] Start: 03-22-2024 Tobacco Screening Tobacco Screening [facility] Start: 12-16-2023 Adult BMI Follow Up Plan Adult BMI Follow Up Plan [facility] Start: 12-16-2023 Adult BMI Screening Adult BMI Screening [facility] Start: 12-16-2023 Depression Screening Depression Screening [facility] Start: 12-16-2023 Fall Risk Screening Fall Risk Screening [facility] Start: 12-16-2023 Tobacco Screening Tobacco Screening [facility] Start: 10-30-2023 Influenza vaccination Influenza Vaccine [facility] Start: 10-11-2023 Tobacco Counseling Tobacco Counseling [facility] Start: 06-23-2023 End: 06-23-2023 [facility] Start: 03-22-2023 End: 03-22-2023 Patient encounter procedure 03/22/2023 9:00 AM EST Office Visit [facility] [address] [place] [address] Shannan Reina, HEART NURSE-SENIOR SECURITY ARCHITECT [address] [place] [id number] [facility] Start: 10-29-2022 COVID-19 Vaccine ( season) COVID-19 Vaccine () [facility] Start: 10-29-2022 COVID-19 Vaccine ( season) COVID-19 Vaccine () [facility] Start: 08-14-2022 Glaucoma screening Diabetic Ophthalmology Exam [facility] Start: 12-25-2021 Urine screening for protein Urine Microalbumin [facility] Start: 01-30-2020 Screening for malignant neoplasm of colon Colonoscopy [facility] Start: 2006 Administration of varicella zoster vaccine Zoster (Shingles) Vaccine (1 of 2) [facility] Start: 2001 Screening for malignant neoplasm of colon Colon Cancer Screening Annual FOBT [facility] Start: 1974 Diabetic foot examination Diabetic Foot Exam [facility] Start: 1956 Medicare Annual Wellness Visit Medicare Annual Wellness Visit [facility] Immunizations Immunization Date Immunization Notes Care Provider Fa cility 12-15-2022 Influenza Vaccine, Quadrivalent, Adjuvanted Shannan Reina HEART NURSE-SENIOR SECURITY ARCHITECT Work Phone: [facility] 12-15-2022 influenza virus vaccine, unspecified formulation Shannan Reina HEART NURSE-SENIOR SECURITY ARCHITECT Work Phone: [facility] 12-09-2021 Influenza Vaccine, Quadrivalent, Adjuvanted Shannan Reina HEART NURSE-SENIOR SECURITY ARCHITECT Work Phone: [facility] 11-06-2021 diphtheria, tetanus toxoids and pertussis vaccine Shannan Reina HEART NURSE-SENIOR SECURITY ARCHITECT Work Phone: [facility] 08-10-2021 pneumococcal conjuga te vaccine, 13 valent Tao CONTRERAS [facility] 01-16-2021 SARS-CoV-2 (COVID-19 ) mRNA BNT-162b2 vax Tao CONTRERAS [facility] 01-15-2021 SARS-COV-2 (COVID-19 ) Vaccine, Unspecified Shannan Reina HEART NURSE-SENIOR SECURITY ARCHITECT Work Phone: [employer] 12-25-2020 SARS-CoV-2 (COVID-19 ) mRNA BNT-162b2 vax Tao CONTRERAS [facility] 12-25-2020 SARS-COV-2 (COVID-19 ) Vaccine, Unspecified Shannan Reina HEART NURSE-SENIOR SECURITY ARCHITECT Work Phone: [employer] [facility] Payers Date Payer Category Payer Private Health Insurance [facility] [id number] 2022-Present [phone] [address] [address] [place] [address] [id number] 2019 Unknown [id number] 1959 Unknown [id number] 1956 Unknown [id number]. [id number] 1956 Unknown [id number]. 2.593 1956 Unknown [id number] [id number]. 2.593 1956 Unknown [id number] [id number]. 2.593 1956 Unknown [id number] [id number]. 2.727 1956 Unknown [id number] [id number]. 2.727 1956 Unknown [id number] [id number]. 2.1286 1956 Unknown [id number] [id number]. 2.1286 1956 Unknown [id number]. 2.1286 Social History Date Type Detail Facility Start: 11-09-2021 Tobacco smoking status Ex-smoker (fi nding) [facility] Start: 03-20-2020 End: 12-15-2022 Sex Assigned At Male [facility] Start: 04-12-2022 [facility] Start: 04-12-2022 Tobacco use and exposure User of smokeless tobacco [facility] History of tobacco use Chews Tobacco [facility] Start: 12-15-2022 End: 03-22-2023 Alcohol intake Ex-drinker (finding) [facility] Start: 03-20-2020 End: 12-15-2022 History of Social function [facility] Adolescent depressio n screening assessment 0 [facility] Start: 1955 Sex Assigned At Not on file P [facility] Medical Equipment Procedure Code Equipment Code Equipment Origin al Text Equipment Identifier Dates Monitor blood beth gars twice daily [id number] Start: 12-25-2020 Inject 1 Lancet into the skin 2 (two) times a day. [id number] Start: 12-25-2020 Functional Status Date Assessment Result Facility 11-09-2021 Functional Status N/A [facility] Clinical Notes 02-17-2021 to 03-22-2023 Shannan Reina APRN-SENIOR SECURITY ARCHITECT - 03/22/2023 9:00 AM ESTPatient InstructionsAttachments Note Date & Type Note Facility 03-22-2023 History of Present illness Narrative Images from the original note were not included. [address] [place] [id number] SUBJECTIVE: Patient ID: Cecil Vigil is a 67 y.o. male. Chief Complaint Patient presents with Diabetes Hypertension Presents for follow up Relates since knowing his liver enzymes, he has decreased alcohol consumption. Stopped whiskey. Still consumes beer Has been experiencing pain of left shoulder for approximately one week. Denies trauma. Just woke up in the morning and noticed discomfort. Has full ROM. Diabetes He presents for his follow-up diabetic visit. He has type 2 diabetes mellitus. His disease course has been improving. Pertinent negatives for hypoglycemia include no headaches, nervousness/anxiousness or seizures. There are no diabetic associated symptoms. Pertinent negatives for diabetes include no chest pain, no fatigue, no polydipsia, no polyphagia and no polyuria. There are no hypoglycemic complications. Symptoms are stable. There are no diabetic complications. Risk factors for coronary artery disease include diabetes mellitus, dyslipidemia, family history, hypertension, male sex, obesity and tobacco exposure. Current diabetic treatment includes oral agent (monotherapy). He is compliant with treatment all of the time. He is following a low fat/cholesterol diet. Meal planning includes avoidance of concentrated sweets. He participates in exercise three times a week. His breakfast blood glucose range is generally 110-130 mg/dl. An PACO inhibitor/angiotensin II receptor dawood is being taken. Eye exam is current. Anxiety Presents for follow-up visit. Symptoms include irritability and muscle tension. Patient reports no chest pain, decreased concentration, depressed mood, nervous/anxious behavior, palpitations or shortness of breath. Symptoms occur rarely. The severity of symptoms is mild. Nighttime awakenings: none. Hyperlipidemia This is a chronic problem. The current episode started more than 1 year ago. Recent lipid tests were reviewed and are variable. Exacerbating diseases include diabetes, hypothyroidism and obesity. Factors aggravating his hyperlipidemia include smoking. Pertinent negatives include no chest pain or shortness of breath. Current antihyperlipidemic treatment includes statins. The current treatment provides significant improvement of lipids. There are no compliance problems. Risk factors for coronary artery disease include diabetes mellitus, dyslipidemia, family history, hypertension, male sex and obesity. Shoulder Pain The pain is present in the left shoulder. This is a new problem. The current episode started in the past 7 days. The problem occurs daily. The problem has been waxing and waning. The quality of the pain is described as aching and sharp. The pain is at a severity of 5/10. The pain is moderate. Associated symptoms include stiffness and tingling. Pertinent negatives include no fever, inability to bear weight, itching, joint locking, joint swelling, limited range of motion or numbness. The symptoms are aggravated by activity. He has tried rest for the symptoms. The treatment provided no relief. The following portions of the patient's history were reviewed and updated as appropriate: allergies, current medications, past family history, past medical history, past social history, past surgical history and problem list. 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 HENT: Negative for hearing loss and trouble swallowing. Eyes: Negative for pain and visual disturbance. Respiratory: Negative for cough and chest tightness. Cardiovascular: Negative for leg swelling. Gastrointestinal: Negative for blood in stool. Genitourinary: Negative for difficulty urinating, dysuria, flank pain, hematuria, scrotal swelling and testicular pain. Musculoskeletal: Positive for stiffness. Skin: Negative. Negative for itching. Allergic/Immunologic: Negative. Neurological: Positive for tingling. Negative for syncope and numbness. Hematological: Does not bruise/bleed easily. Psychiatric/Behavioral: Negative. PHYSICAL EXAMINATION: Vitals: 03/22/23 0905 BP: 124/72 BP Site: Left Arm BP Postition: Sitting Pulse: 69 Temp: 36.4 C (97.6 F) TempSrc: Oral SpO2: 98% Weight: 118.4 kg (261 lb) Height: 185.4 cm (6' 1 ) Patient noted to have elevated BMI and the following intervention(s) were applied: encouragement to exercise. Physical Exam Vitals and nursing note reviewed. Constitutional: General: He is not in acute distress. Appearance: He is well-developed. HENT: Head: Normocephalic and atraumatic. Right Ear: Tympanic membrane and external ear normal. Left Ear: Tympanic membrane and external ear normal. Nose: Nose normal. Mouth/Throat: Mouth: Mucous membranes are moist. Pharynx: No oropharyngeal exudate. Eyes: General: No scleral icterus. Right eye: No discharge. Left eye: No discharge. Conjunctiva/sclera: Conjunctivae normal. Pupils: Pupils are equal, round, and reactive to light. Neck: Vascular: No JVD. Cardiovascular: Rate and Rhythm: Normal rate and regular rhythm. Heart sounds: Normal heart sounds. No murmur heard. No friction rub. No gallop. Pulmonary: Effort: Pulmonary effort is normal. No respiratory distress. Breath sounds: Normal breath sounds. Chest: Chest wall: No tenderness. Abdominal: General: Bowel sounds are normal. There is no distension. Palpations: Abdomen is soft. There is no mass. Tenderness: There is no abdominal tenderness. There is no guarding or rebound. Hernia: No hernia is present. Musculoskeletal: General: Tenderness present. Normal range of motion. Left shoulder: Tenderness and bony tenderness present. Arms: Cervical back: Normal range of motion and neck supple. Lymphadenopathy: Cervical: No cervical adenopathy. Skin: General: Skin is warm and dry. Capillary Refill: Capillary refill takes less than 2 seconds. Findings: No rash. Neurological: Mental Status: He is alert and oriented to person, place, and time. Deep Tendon Reflexes: Reflexes are normal and symmetric. Psychiatric: Mood and Affect: Mood normal. Behavior: Behavior normal. Thought Content: Thought content normal. Judgment: Judgment normal. ASSESSMENT/PLAN: Cecil was seen today for diabetes and hypertension. Diagnoses and all orders for this visit: Non-insulin dependent type 2 diabetes mellitus (CMS-HCC) - POCT Hemoglobin A1c - metFORMIN XR (GLUCOPHAGE XR) 500 mg 24 hr tablet; Take 1 tablet (500 mg total) by mouth in the morning and 1 tablet (500 mg total) in the evening. Take with meals. - lisinopriL (PRINIVIL,ZESTRIL) 2.5 mg tablet; TAKE 1 TABLET BY MOUTH EVERY DAY - atorvastatin (LIPITOR) 40 mg tablet; Take 1 tablet (40 mg total) by mouth in the morning. Acquired hypothyroidism - levothyroxine (SYNTHROID, LEVOTHROID) 75 MCG tablet; TAKE 1 TABLET(75 MCG) BY MOUTH DAILY Anxiety with depression - FLUoxetine (PROzac) 20 MG tablet; Take 1 tablet (20 mg total) by mouth in the morning. Tinea versicolor - nystatin-triamcinolone (MYCOLOG II) cream; Apply 1 Application topically in the morning and 1 Application at noon and 1 Application in the evening and 1 Application before bedtime. Acute pain of left shoulder - methylPREDNISolone (MEDROL, GABRIEL,) 4 mg tablet; follow package directions Elevated LFTs Type 2 DM -A1c 7.3% in office. Was 6.4% Encourage routine home blood sugar monitoring, diet modification, and exercise regimen. Is not actively checking blood sugars daily Yearly eye exams Daily self skin foot checks Is on PACO and statin Increase metformin XR to 500 mg oral twice daily Mixed hyperlipidemia Continue atorvastatin 40 mg oral daily Depression and anxiety Depression: Not at risk (03/22/2023) PHQ-2 PHQ-2 Score: 0 Stable Continue fluoxetine 20 mg oral daily Acquired hypothyroidism TSH 2.56 Continue levothyroxine 75 mcg oral daily Right shoulder pain New onset, started last week. No known trauma Start medrol dose pack as directed. May increase blood sugars temporarily. Tinea Vesicular Start Mycolog cream Elevated liver enzymes AST 74, ALT 107 Education liver disease contributed by ETOH consumption Recheck LFT next shelby ALL QUESTIONS ANSWERED Total time spent was 35 minutes: Preparing to see the patient (e.g., review of tests) Obtaining and/or reviewing separately obtained history Performing a medically appropriate examination and/or evaluation Counseling and educating the patient/family/caregiver Ordering medications, tests, or procedures Follow-up: 3 MONTHS RISHI March 03/22/23 1036 [facility] Instructions RISHI March - 03/22/2023 9:00 AM EST Are You Ready To Kick The Habit? Free Tobacco Cessation Resources [facility] Services [facility] provide all employees with free tobacco cessation services that include: Counseling to understand nicotine addiction Education about medications that can help you successfully quit Assistance with developing a plan to quit Call to set up an individual appointment or find out when group classes will be held: [facility]: [phone] [facility]: [phone] [facility]: [phone] [facility]: [phone] Quit Smoking Action Plan and Resources [facility] offers an eight-week, online smoking cessation plan to all [facility] employees, regardless of whether [employer] is your medical insurance provider. Go to www.[employer].org/employeewelln ess and click the Health Risk Assessment and Resources link to get started. In the [employer] menu, click Action Plans instead of Health Risk Assessment to access the Quit Smoking Action Plan. Additional smoking cessation resources are also available to all [facility] employees on the [employer] web page at www.[employer]/quits mynor. [employer] Tobacco Cessation Program If [employer] is your medical insurance provider, there are more free resources available to you, including: No copays or deductibles on local tobacco cessation counseling services to help you quit Prescription assistance for tobacco cessation medications to help you quit For details about the tobacco cessation program available to [employer] members, go to www.[employer] (Search: Tobacco Cessation Program). [place] Tobacco Quit Line 0-487-YAID-NOW ( ) is a toll-free, telephonic service that helps [place] residents quit smoking and using tobacco. It is staffed by experts who tailor a quit plan for you and provide you with advice. [place] Tobacco Quit Line 3-623-CNUG-NOW ( ) is a toll-free, telephonic service that helps [place] residents quit smoking and using tobacco. It is staffed by experts who tailor a quit plan for you and provide you with advice. Two weeks of nicotine replacement therapy may be provided at no charge, if needed. Additional Resources These national organizations also offer free information and resources to help you quit tobacco: [place] [employer]--www.cancer.org/healthy/s tayawayfromtobacco [place] Heart [employer]--www.heart.org (Search: Quit Smoking) Centers for Disease Control and Prevention--www.cdc.gov/tobacco [place] Lung Association--www.lungusa.org The following attachments cannot be sent through Care Everywhere.Hypothyroidism (underactive thyroid) (Setswana)documented [facility] Discharge instructions Patient Education 11/09/2021 09:56:33 Erectile Dysfunction Erectile Dysfunction Erectile dysfunction (ED) is the inability to get or keep an erection in order to have sexual intercourse. Erectile dysfunction may include: Inability to get an erection. Lack of enough hardness of the erection to allow penetration. Loss of the erection before sex is finished. What are the causes? This condition may be caused by: Certain medicines, such as: ?Pain relievers. ?Antihistamines. ?Antidepressants. ?Blood pressure medicines. ?Water pills (diuretics). ?Ulcer medicines. ?Muscle relaxants. ?Drugs. Excessive drinking. Psychological causes, such as: ?Anxiety. ?Depression. ?Sadness. ?Exhaustion. ?Performance fear. ?Stress. Physical causes, such as: ?Artery problems. This may include diabetes, smoking, liver disease, or atherosclerosis. ?High blood pressure. ?Hormonal problems, such as low testosterone. ?Obesity. ?Nerve problems. This may include back or pelvic injuries, diabetes mellitus, multiple sclerosis, or Parkinson disease. What are the signs or symptoms? Symptoms of this condition include: Inability to get an erection. Lack of enough hardness of the erection to allow penetration. Loss of the erection before sex is finished. Normal erections at some times, but with frequent unsatisfactory episodes. Low sexual satisfaction in either partner due to erection problems. A curved penis occurring with erection. The curve may cause pain or the penis may be too curved to allow for intercourse. Never having nighttime erections. How is this diagnosed? This condition is often diagnosed by: Performing a physical exam to find other diseases or specific problems with the penis. Asking you detailed questions about the problem. Performing blood tests to check for diabetes mellitus or to measure hormone levels. Performing other tests to check for underlying health conditions. Performing an ultrasound exam to check for scarring. Performing a test to check blood flow to the penis. Doing a sleep study at home to measure nighttime erections. How is this treated? This condition may be treated by: Medicine taken by mouth to help you achieve an erection (oral medicine). Hormone replacement therapy to replace low testosterone levels. Medicine that is injected into the penis. Your health care provider may instruct you how to give yourself these injections at home. Vacuum pump. This is a pump with a ring on it. The pump and ring are placed on the penis and used to create pressure that helps the penis become erect. Penile implant surgery. In this procedure, you may receive: ?An inflatable implant. This consists of cylinders, a pump, and a reservoir. The cylinders can be inflated with a fluid that helps to create an erection, and they can be deflated after intercourse. ?A semi-rigid implant. This consists of two silicone rubber rods. The rods provide some rigidity. They are also flexible, so the penis can both curve downward in its normal position and become straight for sexual intercourse. Blood vessel surgery, to improve blood flow to the penis. During this procedure, a blood vessel from a different part of the body is placed into the penis to allow blood to flow around (bypass) damaged or blocked blood vessels. Lifestyle changes, such as exercising more, losing weight, and quitting smoking. Follow these instructions at home: Medicines Take dkyt-jld-kerhmle and prescription medicines only as told by your health care provider. Do not increase the dosage without first discussing it with your health care provider. If you are using self-injections, perform injections as directed by your health care provider. Make sure to avoid any veins that are on the surface of the penis. After giving an injection, apply pressure to the injection site for 5 minutes. General instructions Exercise regularly, as directed by your health care provider. Work with your health care provider to lose weight, if needed. Do not use any products that contain nicotine or tobacco, such as cigarettes and e-cigarettes. If you need help quitting, ask your health care provider. Before using a vacuum pump, read the instructions that come with the pump and discuss any questions with your health care provider. Keep all follow-up visits as told by your health care provider. This is important. Contact a health care provider if: You feel nauseous. You vomit. Get help right away if: You are taking oral or injectable medicines and you have an erection that lasts longer than 4 hours. If your health care provider is unavailable, go to the nearest emergency room for evaluation. An erection that lasts much longer than 4 hours can result in permanent damage to your penis. You have severe pain in your groin or abdomen. You develop redness or severe swelling of your penis. You have redness spreading up into your groin or lower abdomen. You are unable to urinate. You experience chest pain or a rapid heart beat (palpitations) after taking oral medicines. Summary Erectile dysfunction (ED) is the inability to get or keep an erection during sexual intercourse. This problem can usually be treated successfully. This condition is diagnosed based on a physical exam, your symptoms, and tests to determine the cause. Treatment varies depending on the cause, and may include medicines, hormone therapy, surgery, or vacuum pump. You may need follow-up visits to make sure that you are using your medicines or devices correctly. Get help right away if you are taking or injecting medicines and you have an erection that lasts longer than 4 hours. This information is not intended to replace advice given to you by your health care provider. Make sure you discuss any questions you have with your health care provider. Document Released: 02/11/2001 Document Revised: 01/27/2018 Document Reviewed: 03/02/2017 [employer] Patient Education 2020 [employer]. Follow Up Care 11/07/2020 10:16:07 With:ANGEL GLEZ, Tao Reed, URL Address: [facility] [address] [place] [address]- [phone] When:11/09/2022 [facility] 02-17-2021 Note EXAMINATION: XR CHES T 2 V HISTORY: COVID-19 ; follow-up pneumonia COMPARISON: XR chest 12/01/2020 FINDINGS: LUNGS: Minimal haziness and mild stranding within lung bases. VASCULATURE: No increased pulmonary vasculature. PLEURA: No pneumothorax, effusion, or pleural thickening. CARDIAC: No cardiomegaly or cardiac silhouette abnormality. MEDIASTINUM: No visible mass or adenopathy. BONES: No fracture or visible bone lesion. OTHER: Negative. IMPRESSION: 1. Trace amount of bibasilar infiltrates versus atelectasis; improved compared to prior study. Electronically authenticated by: TYRON CHRISTIAN Date: 2021-02-17 15:57 [facility] Evaluation + Plan note Future Appointments Appointment Date:11/12/2022 09:45:00 AM Scheduled Provider:Tao CONTRERAS MD Location:[facility] Appointment Type:URO Office Visit Diagnostic Tests PendingPSA Free & Total 11/09/21 [facility] Evaluation note Diagnosis Non-insulin dependent type 2 diabetes mellitus (CMS-HCC) Type II or unspecified type diabetes mellitus without mention of complication, not stated as uncontrolled [facility] Diagnosis Non-insulin dependent type 2 diabetes mellitus (CMS-HCC)- Primary Type II or unspecified type diabetes mellitus without mention of complication, not stated as uncontrolled Acquired hypothyroidism Unspecified hypothyroidism Anxiety with depression Tinea versicolor Pityriasis versicolor Acute pain of left shoulder Elevated LFTs Other abnormal blood chemistry [facility] Diagnosis Pneumonia due to COVID-19 virus [facility] N[facility] No data available for this section [facility] InstructionsNot on filedocumented in this encounter [facility] filed[facility]ed in this [facility] No data available for this section [facility] Summary Purpose Family History No Family History Records FoundNo Family History Records FoundNo Family History Records Found Advance Directives No Advanced Directives Records FoundNo Advanced Directives Records FoundNo Advanced Directives Records Found Additional Source Comments Care Team (unrecognized sect ion and content) 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 Relationship Specialty Start Date End Date Shannan Reina, HEART NURSE-SENIOR SECURITY ARCHITECT [address], [place], [place] [id number] PCP - General Family Medicine 06/12/19 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 Relationship Specialty Start Date End Date Shannan Reina APRN-CNP [address] [place] [phone] PCP - General Family Medicine 06/12/19 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 Relationship Specialty Start Date End Date Nuno Shannan LiamRISHI [address] [place] [phone] PCP - General Family Medicine 06/12/19 (unrecognized sect ion and content) No Status Records FoundNo Status Records FoundNo Status Records Found INFORMATION SOURCE (unrecogn ized section and content) DATE CREATED AUTHOR 12/04/2021 [facility] DATE CREATED AUTHOR AUTHOR'S ORGANIZ ATION 12/30/2022 [place] [facility] DATE CREATED AUTHOR AUTHOR'S ORGANIZ ATION 10/12/2023 [facility] Reason for Visit (unrecogniz ed section and content) Reason Comments Med Refill Reason Comments Diabetes Hypertension FOR RECORDS PERTAINING TO PATIENTS WHO ARE OR HAVE BEEN ENROLLED IN A CHEMICAL DEPENDENCY/SUBSTANCEABUSE PROGRAM, SOME INFORMATION MAY BE OMITTED. This clinical summary was aggregated from multiple sources. Caution should be exercised in using it in the provision of clinical care. This summary normalizes information from multiple sources, and as a consequence, information in this document may materially change the coding, format and clinical context of patient data. In addition, data may be omitted in some cases. CLINICAL DECISIONS SHOULD BE BASED ON THE PRIMARY CLINICAL RECORDS. [employer] provides no warranty or guarantee of the accuracy or completeness of information in this document.
[2023-12-27 10:57] LABS: Prostate Specific Antigen Dx 1.48 ng/mL (<=4.00)
== END 2023-12-27 10:02 | disposition home or self-care (01) ==
LOC: LAB 10:04
PROVIDERS: PCP Nurse Practitioner; Visit Provider Urology
DX: N40.1 Benign prostatic hyperplasia with lower urinary tract symptoms (principal); N40.2 Nodular prostate without lower urinary tract symptoms
CPT/HCPCS: 36415; 84153